=== PATIENT | female | born 2000 | race African-American/Black ===

== ENCOUNTER 2022-12-18 20:03 | Emergency (ER) | payer OTHER, SELFPAY ==
[2022-12-18] MEDS ORDERED: Ketorolac Tromethamine 30 MG/ML VIAL ONE (21:10)
== END 2022-12-18 21:45 | disposition home or self-care (01) ==
LOC: CSHERS 20:03
DX: S39.012A Strain of muscle, fascia and tendon of lower back, initial encounter (principal); S16.1XXA Strain of muscle, fascia and tendon at neck level, initial encounter; V89.2XXA Person injured in unspecified motor-vehicle accident, traffic, initial encounter; Y92.410 Unspecified street and highway as the place of occurrence of the external cause
CPT/HCPCS: 96372; 99283; J1885